=== PATIENT | female | born 1995 | race Caucasian/White ===

== ENCOUNTER 2016-11-27 16:22 | Emergency (ER) | payer OTHER ==
[~2016-11-27 16:22] MED LIST: BACTRIM DS TABL1 TA1 PO; MIDOL PO
[2016-11-28 07:15] LABS: MICRO INDICATED? YES; URINE APPEARANCE CLEAR; URINE BACTERIA NEG (NEG); URINE BILIRUBIN NEG (NEG); URINE BLOOD NEG (NEG); URINE COLOR YELLOW; URINE GLUCOSE NORM (NEG); URINE KETONE NEG (NEG); URINE LEUKOCYTE ESTERASE TRACE (NEG); URINE NITRATE NEG (NEG); URINE PH 5.5 (5-8); URINE PROTEIN NEG (NEG); URINE RBC NEG /[HPF] (0-2); URINE SOURCE CLEAN CATCH; URINE UROBILINOGEN 0.2 MG/DL (NEG); URINE WBC 0-2 /[HPF] (0-5)
[2016-11-28 07:16] LABS: CULTURE INDICATED? NO; URINE SQUAMOUS EPITHELIAL CELL FEW /[HPF]
[2016-12-02 02:19] LABS: CHLAMYDIA TRACH Not Detected (Not Detected); N GONOR Not Detected (Not Detected)
== END 2016-11-27 18:24 | disposition home or self-care (01) ==
LOC: SED 16:22
PROVIDERS: Physician Assistant
DX: R30.0 Dysuria (principal)
CPT/HCPCS: 81003; 84703; 87210; 87491; 87591; 87808; 87905; 99282

== ENCOUNTER 2016-11-28 18:47 | Emergency (ER) | payer OTHER ==
[2016-11-28 20:30] LABS: URINE SOURCE CLEAN CATCH
[2016-11-28 20:37] LABS: URINE APPEARANCE CLEAR; URINE BILIRUBIN NEG (NEG); URINE BLOOD NEG (NEG); URINE COLOR DK YELLOW; URINE GLUCOSE NEG (NEG); URINE KETONE NEG (NEG); URINE LEUKOCYTE ESTERASE 1+ (NEG); URINE NITRATE POS (NEG); URINE PH 6.5 (5-8); URINE PROTEIN NEG (NEG); URINE SPECIFIC GRAVITY 1.017 (1.003-1.035)
[2016-11-28 20:41] LABS: URINE BACTERIA AUWI NEG (NEGATIVE); URINE SQUAMOUS EPITHELIAL CELL NONE SEEN /[HPF]; UWBCS1 AUWI 0-2 (0-5)
[2016-11-28 20:43] LABS: CULTURE INDICATED? NO
== END 2016-11-28 21:00 | disposition home or self-care (01) ==
LOC: CFTX 18:47 → CED 18:47 → CFTX 19:30
PROVIDERS: Nurse Practitioner Family
DX: A60.09 Herpesviral infection of other urogenital tract (principal); Z79.899 Other long term (current) drug therapy
CPT/HCPCS: 81003; 84703; 87253; 96372; 99283; J0696

== ENCOUNTER 2017-01-20 17:34 | Emergency (ER) | payer OTHER ==
--- NOTE | ~2017-01-20 | EKG ---
PATIENT: DEBORAH VERDUZCO UNIT #: [id number] Ventricular Rate: 104 BPM Atrial Rate: 104 BPM P-R Interval: 156 ms QRS Duration: 78 ms Q-T Interval: 336 ms QTC Calculation(Bezet): 441 ms P [place]: 29 degrees Calculated R [place]: 42 degrees Calculated T [place]: 44 degrees Diagnosis Line: Sinus tachycardia Diagnosis Line: Otherwise normal ECG Diagnosis Line: No previous ECGs available Diagnosis Line: Confirmed by ANGELI HERNÁNDEZ MD ([id number]) on Diagnosis Line: 01/22/2017 8:03:21 AM INTERPRETING MD: BETTY MEMBRENO
--- NOTE | ~2017-01-20 | CR72 ---
[facility]. [facility] A Service of [facility] RADIOLOGY TEXT RESULTS PATIENT: DEBORAH VERDUZCO LOCATION: SED : [birth year] UNIT #: [id number] AGE: [address]: Deny Shirley MD SEX: F ORDER DR: [id number] [address] [address] [id number] E MR#: [id number] Acc #: [id number] NAME: DEBORAH VERDUZCO : 1995 SEX: F STUDY DATE/TIME: UNIT: SED ROOM: STUDY DESCRIPTION: CR Chest Single View Portable Attending Physician: Deny Shirley M.D. Ordering Physician: Deny Shirley M.D. Primary Care Physician: Rodolfo Mejias M.D. MEDICAL IMAGING REPORT This report is preliminary unless electronic signature is present. EXAM Chest portable 01/20/2017 1800 hours HISTORY 21-year-old complaining of chest pain today, dizziness and shortness of air after taking too many [id number]-vmzavyq sleep medications. COMPARISON None FINDINGS Portable upright chest demonstrates no cardiomegaly, pleural effusion or parenchymal change. There is no pneumothorax. IMPRESSION Normal upright portable chest. Dictated by... Sarahi Matson M.D. THIS IS AN ELECTRONICALLY VERIFIED REPORT Sarahi Matson M.D. at 01/21/2017 9:35 AM SMM/lauren TD: 01/20/2017 22:18 JOB #: [id number] MEDICAL IMAGING REPORT Page 1 of 1
[2017-01-20] MEDS ORDERED: NO MEDICATIONS (17:39)
== END 2017-01-20 18:43 | disposition home or self-care (01) ==
LOC: SED 17:34
DX: T45.0X1A Poisoning by antiallergic and antiemetic drugs, accidental (unintentional), initial encounter (principal); R07.89 Other chest pain; Y92.9 Unspecified place or not applicable
CPT/HCPCS: 71010; 93005; 99285